=== PATIENT | female | born 1970 | race Caucasian/White ===

== ENCOUNTER 2016-09-15 04:44 | Emergency (ER) | payer OTHER ==
[~2016-09-15] VITALS: Ht 165.1 cm; Wt 72.6 kg
[2016-09-15 04:45] VITALS: BP 136/84
[2016-09-15] MEDS ORDERED: IPRATROPIUM BROM 0.5 MG/2.5ML INH SOL NEB ONE (05:00)
[2016-09-15] MEDS ORDERED: ALBUTEROL SULF 2.5 MG/0.5ML(0.5%) NEB SOLN NEB ONE (05:00)
== END 2016-09-15 05:30 | disposition left against medical advice (07) ==
LOC: ER 04:49
DX: R06.02 Shortness of breath (principal); R07.89 Other chest pain; Z53.21 Procedure and treatment not carried out due to patient leaving prior to being seen by health care provider
CPT/HCPCS: 94640

== ENCOUNTER 2016-12-28 20:16 | Emergency (ER) | payer OTHER ==
[~2016-12-28] VITALS: Ht 165.1 cm; Wt 74.8 kg
[2016-12-28] MEDS ORDERED: diphenhdrAMINE HCL 50 MG/1 ML VL ONE ×2 (20:24→23:11)
[2016-12-28] MEDS ORDERED: methylPREDNISolone SOD SUCC 125 MG/2 ML VL ONE (20:24)
[2016-12-28] MEDS ORDERED: diphenhdrAMINE HCL 50 MG/1 ML VL IV ONE (20:30)
[2016-12-28] MEDS ORDERED: GLUCAGON HYDROCHLORIDE (RDNA) 1 MG VIAL IV ONE ×3 (20:30→21:15)
[2016-12-28] MEDS ORDERED: methylPREDNISolone SOD SUCC 125 MG/2 ML VL IV ONE (20:30)
[2016-12-28] MEDS ORDERED: FAMOTIDINE (10MG/ML) 2ML VL IV ONE (20:30)
[2016-12-28] MEDS ORDERED: ONDANSETRON HCL 4 MG/2 ML VIAL ONE (20:44)
[2016-12-28] MEDS ORDERED: ONDANSETRON HCL 4 MG/2 ML VIAL IV ONE (21:00)
[2016-12-28] MEDS ORDERED: GASTROGRAFIN 120 ML SOL ONE (21:22)
[2016-12-28] MEDS ORDERED: FLUMAZENIL 0.1 MG/ML INJ 10ML MDV IV ONE (23:10)
[2016-12-28] MEDS ORDERED: MIDAZOLAM HCL 5 MG/ML-1ML VIAL ONE (23:10)
[2016-12-28] MEDS ORDERED: SODIUM CHLORIDE LOCK 10 ML ONE (23:10)
[2016-12-28] MEDS ORDERED: NALOXONE HCL 0.4 MG/ML VIAL ONE (23:10)
[2016-12-28] MEDS ORDERED: fentaNYL CITRATE 100 MCG/2 ML VL ONE (23:11)
[2016-12-28] MEDS ORDERED: SODIUM CHLORIDE 0.9% 1,000 ML IV ONE (23:15)
[2016-12-29 00:28] VITALS: BP 119/75
== END 2016-12-29 00:38 | disposition home or self-care (01) ==
LOC: ER 20:17
DX: T18.108A Unspecified foreign body in esophagus causing other injury, initial encounter (principal); J45.909 Unspecified asthma, uncomplicated; Y93.89 Activity, other specified; Y99.8 Other external cause status; Y92.89 Other specified places as the place of occurrence of the external cause
CPT/HCPCS: 43247; 74220; 96361; 96374; 96375; 99284; J1200; J1610; J2250; J2405; J2930; J3010; J3490; J7030; Q9963